=== PATIENT | male | born 1950 | race Hispanic/Latino ===

== ENCOUNTER → 2021-08-26 | Outpatient (CLI) | payer OTHER | END | disposition home or self-care (01) | LOC: RAH 08:25 | PROVIDERS: ATTEND Orthopaedic Surgery | DX: M17.12 Unilateral primary osteoarthritis, left knee (principal); M25.862 Other specified joint disorders, left knee | CPT/HCPCS: 73721 ==

== ENCOUNTER → 2024-01-26 | Outpatient (CLI) | payer OTHER, MEDICARE | END | disposition home or self-care (01) | LOC: SHCH 08:01 | PROVIDERS: ATTEND Student in an Organized Health Care Education/Training Program | DX: I70.203 Unspecified atherosclerosis of native arteries of extremities, bilateral legs (principal) | CPT/HCPCS: 93925 ==

== ENCOUNTER → 2024-02-26 | Outpatient (CLI) | payer OTHER, MEDICARE ==
[2024-02-26 12:42] LABS: ALBUMIN 3.9 g/dL (3.5-5.0); BILIRUBIN,TOTAL 1.2 mg/dL (0.2-1.0); CREATININE 0.8 mg/dL (0.5-1.3); TOTAL PROTEIN, SERUM 7.7 g/dL (6.0-8.3)
== END | disposition home or self-care (01) ==
LOC: LAB 08:08
PROVIDERS: ATTEND Student in an Organized Health Care Education/Training Program
DX: I10 Essential (primary) hypertension (principal); R07.9 Chest pain, unspecified; E78.5 Hyperlipidemia, unspecified
CPT/HCPCS: 36415; 80053; 80061

== ENCOUNTER → 2024-03-07 | Outpatient (CLI) | payer OTHER, MEDICARE ==
[~2024-03-07] MED LIST: IOHEXOL 350 MG/ML 100ML INFUS..BTL IV ONE; METOPROLOL TARTRATE 1 MG/ML 5ML VIAL IV ONE
== END | disposition home or self-care (01) ==
LOC: RAH 09:12
PROVIDERS: ATTEND Student in an Organized Health Care Education/Training Program
DX: I25.10 Atherosclerotic heart disease of native coronary artery without angina pectoris (principal); M47.815 Spondylosis without myelopathy or radiculopathy, thoracolumbar region; R07.9 Chest pain, unspecified
CPT/HCPCS: 75574; J3490; Q9967

== ENCOUNTER → 2025-03-03 | Outpatient (CLI) | payer OTHER, MEDICARE ==
[~2025-03-03] MED LIST changes: +GADOTERATE MEGLUMINE 10 MMOL/20 ML VIAL IV ONE; -IOHEXOL 350 MG/ML 100ML INFUS..BTL IV ONE; -METOPROLOL TARTRATE 1 MG/ML 5ML VIAL IV ONE
--- NOTE | 2025-03-04 10:55 | HMCIMG ---
EXAM: MR Pelvis with and without Intravenous Contrast CLINICAL HISTORY: N32.89 Other specified disorders of bladder. TECHNIQUE: Multisequence, multiplanar magnetic resonance images of the pelvis were obtained before and after administration of intravenous contrast. CONTRAST: Intravenous contrast administered. COMPARISON: None provided. FINDINGS: BOWEL: Limited evaluation of the stomach and bowel demonstrates no acute abnormality. Uncomplicated colonic diverticula are noted. BLADDER: Urinary bladder is distended with increased wall thickening. No focal lesion identified. No intraluminal stone is seen. REPRODUCTIVE: Prostate is enlarged in caliber with a hypertrophied median lobe, which indents the base of the urinary bladder. LYMPH NODES: No pelvic lymphadenopathy. BONES: No acute fracture or aggressive osseous lesion. Small fat-containing right inguinal hernia. IMPRESSION: Urinary bladder is distended with increased wall thickening, consistent with cystitis. No focal bladder lesion identified. Prostatomegaly. Small fat-containing right inguinal hernia. Uncomplicated colonic diverticula. /Diller
== END | disposition home or self-care (01) ==
LOC: RAH 13:49
PROVIDERS: ATTEND Internal Medicine
DX: N40.0 Benign prostatic hyperplasia without lower urinary tract symptoms (principal); K40.90 Unilateral inguinal hernia, without obstruction or gangrene, not specified as recurrent; K57.30 Diverticulosis of large intestine without perforation or abscess without bleeding; N32.89 Other specified disorders of bladder
CPT/HCPCS: 72197; A9575

== ENCOUNTER → 2025-04-22 | Outpatient (CLI) | payer OTHER, MEDICARE ==
[2025-04-22 14:03] LABS: CREATININE 1.1 mg/dL (0.5-1.3); GLOMERULAR FILTR. RATE CALC 71.0 mL/min (>90); GLUCOSE,RANDOM 158.0 mg/dL (70-105); SODIUM SERUM 139.0 mmol/L (136-145); UREA NITROGEN, BLOOD 19.0 mg/dL (7-18)
== END | disposition home or self-care (01) ==
LOC: LAB 13:00
PROVIDERS: ATTEND Student in an Organized Health Care Education/Training Program
DX: R31.0 Gross hematuria (principal)
CPT/HCPCS: 36415; 80048

== ENCOUNTER → 2025-04-28 | Outpatient (CLI) | payer OTHER, MEDICARE ==
--- NOTE | 2025-04-29 22:43 | HMCIMG ---
EXAM: MR Lumbar Spine Without Intravenous Contrast. CLINICAL HISTORY: Lumbar radiculopathy. TECHNIQUE: Magnetic resonance images of the lumbar spine in multiple planes. CONTRAST: None. COMPARISON: None. FINDINGS: For this examination, spinal levels were labeled assuming five non-rib bearing, lumbar-type vertebrae with the inferior labeled L5. No acute fracture. Normal lordotic curvature. Normal vertebral body height and marrow signal intensity. Minimal anterolisthesis of L4 over L5. Disc desiccation and disc bulges at L2-L3, L3-L4, L4-L5 level with multilevel degenerative facet arthropathy. Conus medullaris terminates at the T12-L1 level. No abnormal epidural masses. 18 mm hemangioma in the T12 thoracic vertebra. The surrounding soft tissues are unremarkable. Individual spinal levels are described as follows: T12-L1: No disc bulge or herniation. No neural foraminal, lateral recess or spinal canal stenosis. L1-L2: No disc bulge or herniation. No neural foraminal, lateral recess or spinal canal stenosis. L2-L3: Mild disc desiccation with broad-based circumferential 3 mm disc bulge. Mild bilateral facet arthropathy and ligamentum flavum hypertrophy, right more than left. Abutment of the bilateral exiting L2 nerve root, right more than left. No significant lateral recess or spinal canal stenosis. L3-L4: Mild disc desiccation with broad-based circumferential 4 mm disc bulge. Mild bilateral facet arthropathy and ligamentum flavum hypertrophy. Moderate narrowing of the bilateral neural foramina and mild narrowing of the bilateral lateral recesses. Abutment of bilateral exiting L3 and traversing L4 nerve root. Mild spinal canal stenosis. L4-L5: Mild disc desiccation. Broad-based circumferential 5 mm disc bulge. Minimal anterolisthesis of L4 over L5 (5 mm). Moderate bilateral facet arthropathy and ligamentum flavum hypertrophy. Moderate narrowing of the bilateral lateral recesses and neural foramina. Abutment of the bilateral exiting L4 nerve root and the traversing L5 nerve root. Mild spinal canal stenosis. L5-S1: Mild disc desiccation with minimal 2 mm disc bulge. Mild bilateral facet arthropathy. No neural foraminal, lateral recess or spinal canal stenosis. IMPRESSION: No evidence of acute fracture. Normal vertebral body height. Minimal anterolisthesis of L4 over L5. Hemangioma in the T12 thoracic vertebra. Normal vertebral body height and marrow signal intensity. Minimal anterolisthesis of L4 over L5. Disc desiccation and disc bulges at L2-L3, L3-L4, and L4-L5 levels with multilevel degenerative facet arthropathy. Mild to moderate degenerative changes in the lumbar spine, most prominent at the L4-L5 level. /Spicer
== END | disposition home or self-care (01) ==
LOC: RAH 14:39
PROVIDERS: ATTEND Internal Medicine
DX: M47.817 Spondylosis without myelopathy or radiculopathy, lumbosacral region (principal); M43.16 Spondylolisthesis, lumbar region; M51.16 Intervertebral disc disorders with radiculopathy, lumbar region; D18.09 Hemangioma of other sites; M48.061 Spinal stenosis, lumbar region without neurogenic claudication
CPT/HCPCS: 72148

== ENCOUNTER → 2025-05-15 | Outpatient (CLI) | payer OTHER, MEDICARE ==
[~2025-05-15] MED LIST changes: -GADOTERATE MEGLUMINE 10 MMOL/20 ML VIAL IV ONE; +IOHEXOL 350 MG/ML 100ML INFUS..BTL IV ONE; +IOHEXOL-350 75 ML VIAL IV ONE
--- NOTE | 2025-05-16 09:04 | HMCIMG ---
EXAM: CT Abdomen and Pelvis with and without IV contrast CLINICAL HISTORY: GROSS HEMATURIA TECHNIQUE: Axial computed tomography images of the abdomen and pelvis with and without intravenous contrast. CONTRAST: with and without intravenous contrast. COMPARISON: 03/03 FINDINGS: LUNG BASES:Atelectatic band in the posterobasal segment of the right lower lobe. No pleural effusion. LIVER: Unremarkable. GALLBLADDER AND BILE DUCTS: The gallbladder appears within normal limits. No radioopaque gallstones. No biliary ductal dilatation. PANCREAS: Unremarkable. SPLEEN: Unremarkable. ADRENAL GLANDS: Unremarkable. KIDNEYS, URETERS, AND BLADDER: A few simple cysts in the right kidney, the largest measuring approximately 25 x 21 mm in the mid pole. 4.3 x 3.5 cm well-defined iso to hypodense lesion adjacent to the medial aspect of the left kidney and left proximal ureter. This is of uncertain etiology, but may represent a exophytic left renal mass. The urinary bladder is distended with a thick, irregular wall???suggestive of cystitis. No hydronephrosis or hydroureter. No urinary calculi. STOMACH AND BOWEL: Diverticulosis without evidence of diverticulitis. No bowel obstruction. PERITONEUM: Approximately 22 mm gap defect in the right inguinal region with herniation of omental fat???suggestive of inguinal hernia. No free fluid. No free air. LYMPH NODES: No lymphadenopathy. REPRODUCTIVE: The prostate measures approximately 43 cc??? grade II prostatomegaly. VASCULATURE: Atherosclerotic changes in the visualized arterial vasculature in the form of fibrocalcific plaque. No abdominal aortic aneurysm. BONES: Spinal osseous degenerative changes. No aggressive appearing osseous lesion. No acute osseous pathology. IMPRESSION: 1. 4.3 x 3.5 cm well-defined iso to hypodense lesion adjacent to the medial aspect of the left kidney and left proximal ureter. This is of uncertain etiology, but may represent a exophytic left renal mass. MRI correlation advised. 2. Cystitis with thickened, irregular bladder wall. 3. No urinary calculi. No hydronephrosis. 4. Right inguinal hernia with 22 mm gap defect. 5. Grade II prostatomegaly, prostate volume 43 cc. /[place]
== END | disposition home or self-care (01) ==
LOC: RAH 04-22 12:44
PROVIDERS: ATTEND Student in an Organized Health Care Education/Training Program
DX: K40.90 Unilateral inguinal hernia, without obstruction or gangrene, not specified as recurrent (principal); N40.0 Benign prostatic hyperplasia without lower urinary tract symptoms; N30.91 Cystitis, unspecified with hematuria; I25.10 Atherosclerotic heart disease of native coronary artery without angina pectoris; J98.11 Atelectasis; N28.1 Cyst of kidney, acquired; R31.0 Gross hematuria
CPT/HCPCS: 74178; Q9967